=== PATIENT | male | born 1960 | race Caucasian/White ===

== ENCOUNTER 2021-02-21 20:08 | Emergency (ER) | payer MEDICAID ==
[2021-02-21] MEDS ORDERED: Sulfamethoxazole/Trimethoprim 800-160 MG Tab PO STA (20:37)
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
== END 2021-02-21 20:52 | disposition home or self-care (01) ==
LOC: FB.ED 20:08
DX: L03.113 Cellulitis of right upper limb (principal); Z72.0 Tobacco use
CPT/HCPCS: 99283; A9270